=== PATIENT | female | born 1980 | race American Indian/Alaskan Native ===

== ENCOUNTER 2017-07-31 15:04 | Emergency (ER) | payer MEDICAID ==
[2017-07-31 15:50] VITALS: BP 127/81
--- NOTE | 2017-07-31 17:11 | XRay Report ---
FINAL REPORT PROCEDURE: XR CHEST ROUTINE 2V TECHNIQUE: PA and lateral chest radiographs were obtained. CPT 00551 HISTORY: Flu like symptoms. COMPARISON: No prior studies are available for comparison. FINDINGS: Heart: The heart size is top-normal. Mediastinum/Vessels: Normal. Lungs/Pleural space: Normal. Slight eventration of the right diaphragm. Bony thorax: No acute osseous abnormality. Other: IMPRESSION: No radiographic evidence of acute cardiopulmonary disease. Heart size top-normal.
[2017-07-31] MEDS ORDERED: DECADRON IM ONE (17:20)
[2017-07-31] MEDS ORDERED: PROVENTIL IH ONE (17:20)
[2017-07-31] MEDS ORDERED: MOTRIN PO ONE (17:20)
--- NOTE | 2017-07-31 17:24 | Emergency Department Report ---
- General Chief Complaint: Upper Respiratory Infection Stated Complaint: CHEST PAIN Time Seen by Provider: 07/31/17 17:20 Source: patient Mode of arrival: Ambulatory Limitations: No Limitations - History of Present Illness Initial Comments: 37-year-old -[place] female comes in to the emergency room for cough and congestion times a few days. Patient reports that she sat up subjective fever body aches cough chest felt tight nausea vomiting. Patient reports she last vomited last night at work. She reports that just don't feel good. Patient does have a 6-month-old has been seen as well. He has been sick. She has past medical history anxiety. MD Complaint: fever, cough, sore throat, nasal congestion -: days(s) (3) Severity scale (0 -10): 6 Quality: sharp Worsens With: deep breaths, other (coughing) Associated Symptoms: fever, nasal congestion, sore throat, chest pain, nausea, vomiting, diarrhea - Related Data Previous Rx's Medication Instructions Recorded Last Taken Type ALBUTEROL Inhaler [ProAir HFA 2 puff IH QID PRN #1 inhalation 07/31/17 Unknown Rx Inhaler] methylPREDNISolone [Medrol] 4 mg PO QDAY #1 tab.ds.pk 07/31/17 Unknown Rx Allergies Allergy/AdvReac Type Severity Reaction Status Date / Time No Known Allergies Allergy Verified 07/31/17 15:44 ED Review of Systems ROS: Stated complaint: CHEST PAIN Other details as noted in HPI Constitutional: fever ENT: throat pain, congestion Respiratory: cough, shortness of breath, wheezing Cardiovascular: chest pain Gastrointestinal: nausea, vomiting, diarrhea Genitourinary: denies: urgency, dysuria, discharge Musculoskeletal: denies: back pain, joint swelling, arthralgia Skin: denies: rash, lesions Neurological: denies: headache, weakness, paresthesias Psychiatric: denies: anxiety, depression Hematological/Lymphatic: denies: easy bleeding, easy bruising ED Past Medical Hx - Past Medical History Previous Medical History?: No Hx Hypertension: Yes Additional medical history: anxiety - Surgical History Past Surgical History?: No - Social History Smoking Status: Current Every Day Smoker Substance Use Type: None - Medications Home Medications: Home Medications Medication Instructions Recorded Confirmed Last Taken Type ALBUTEROL Inhaler [ProAir HFA 2 puff IH QID PRN #1 inhalation 02/27/18 Unknown Rx Inhaler] methylPREDNISolone [Medrol] 4 mg PO QDAY #1 tab.ds.pk 07/31/17 Unknown Rx ED Physical Exam - General Limitations: No Limitations General appearance: alert, in no apparent distress - Head Head exam: Present: atraumatic, normocephalic - Eye Eye exam: Present: normal appearance - ENT ENT exam: Present: mucous membranes moist - Neck Neck exam: Present: normal inspection ED Course Vital Signs 07/31/17 15:45 Temperature 98.1 F Pulse Rate 85 Respiratory 16 Rate Blood Pressure 127/81 O2 Sat by Pulse 98 Oximetry - Reevaluation(s) Reevaluation #1: 07/31/17 18:09 Reassessment. Patient reports that she feels much better after having nebulizer treatment and steroids. Discussed the patient discharged her with her all Medrol Dosepak. Patient verbalized understanding ED Medical Decision Making - Medical Decision Making Patient's been evaluated by this provider fast track. I ordered chest x-ray steroids and albuterol and ibuprofen. Patient reports she feels much better after having her treatments. Discussed the patient I will discharge her with steroids and albuterol inhaler patient verbalized understanding. Critical care attestation.: If time is entered above; I have spent that time in minutes in the direct care of this critically ill patient, excluding procedure time. ED Disposition Clinical Impression: Viral syndrome Disposition: DC-01 TO HOME OR SELFCARE Is pt being admited?: No Does the pt Need Aspirin: No Condition: Stable Instructions: Viral Syndrome (ED) Additional Instructions: Please take medication as prescribed. Follow-up to primary care provider in 3- 5 days. Prescriptions: ALBUTEROL Inhaler [ProAir HFA Inhaler] 2 puff IH QID PRN #1 inhalation PRN Reason: Shortness Of Breath methylPREDNISolone [Medrol] 4 mg PO QDAY #1 tab.ds.pk Referrals: [facility] [Provider Group] - 3-5 Days Forms: Work/School Release Form(ED)
== END 2017-07-31 18:45 | disposition home or self-care (01) ==
LOC: ED 15:04
DX: B34.9 Viral infection, unspecified (principal); F41.9 Anxiety disorder, unspecified; F17.200 Nicotine dependence, unspecified, uncomplicated; I10 Essential (primary) hypertension
CPT/HCPCS: 71046; 96372; 99283; J1100

== ENCOUNTER 2017-09-30 14:19 | Emergency (ER) | payer MEDICAID ==
[2017-09-30 14:32] VITALS: BP 144/88
[2017-09-30] MEDS ORDERED: LIDOCAINE VISCOUS 2% PO ONE (14:52)
[2017-09-30] MEDS ORDERED: MOTRIN PO ONE (14:52)
--- NOTE | 2017-09-30 15:02 | Emergency Department Report ---
ED ENT HPI - General Chief complaint: Sore Throat Stated complaint: THROAT PAIN/NAUSEA Time Seen by Provider: 09/30/17 14:33 Source: patient Mode of arrival: Ambulatory Limitations: No Limitations - History of Present Illness Initial comments: This is a 37-year-old female nontoxic, well nourished in appearance, no acute signs of distress presents to the ED with c/o of sore throat x2 days. Patient staed that sore throat causes her to become nauseous but currently in the ED denies any nausea. Patient describes sore throat as swallowing razer blades. Patient denies any fever, chills, headache, stiff neck, nausea, vomiting, chest pain, shortness of breath, numbness or tingling. Patient denies any drooling or hoarseness. Patient denies any allergies. PMH includes HTN. MD complaint: sore throat -: days(s) (2) Location: throat Severity: mild Consistency: constant Improves with: none Worsens with: swallowing Associated Symptoms: pain with swallowing, sore throat. denies: fever, cough, gum swelling, toothache, tinnitus, hearing loss, discharge from ear, rhinorrhea - Related Data Previous Rx's Medication Instructions Recorded Last Taken Type ALBUTEROL Inhaler [ProAir HFA 2 puff IH QID PRN #1 inhalation 07/31/17 Unknown Rx Inhaler] methylPREDNISolone [Medrol] 4 mg PO QDAY #1 tab.ds.pk 07/31/17 Unknown Rx Amoxicillin [Amoxicillin TAB] 875 mg PO BID #20 tablet 09/30/17 Unknown Rx Ibuprofen [Motrin] 600 mg PO Q8H PRN #30 tablet 09/30/17 Unknown Rx Nystas/Diphen/Xyl Visc/Mylanta 15 ml MM Q4H PRN 10 Days ml 09/30/17 Unknown Rx [Magic Mouthwash] Ondansetron [Zofran Odt] 4 mg PO Q8HR PRN #15 tab.rapdis 09/30/17 Unknown Rx Allergies Allergy/AdvReac Type Severity Reaction Status Date / Time No Known Allergies Allergy Verified 07/31/17 15:44 ED Dental HPI - General Chief complaint: Sore Throat Stated complaint: THROAT PAIN/NAUSEA Time Seen by Provider: 09/30/17 14:33 Source: patient Mode of arrival: Ambulatory Limitations: No Limitations - Related Data Previous Rx's Medication Instructions Recorded Last Taken Type ALBUTEROL Inhaler [ProAir HFA 2 puff IH QID PRN #1 inhalation 07/31/17 Unknown Rx Inhaler] methylPREDNISolone [Medrol] 4 mg PO QDAY #1 tab.ds.pk 07/31/17 Unknown Rx Amoxicillin [Amoxicillin TAB] 875 mg PO BID #20 tablet 09/30/17 Unknown Rx Ibuprofen [Motrin] 600 mg PO Q8H PRN #30 tablet 09/30/17 Unknown Rx Nystas/Diphen/Xyl Visc/Mylanta 15 ml MM Q4H PRN 10 Days ml 09/30/17 Unknown Rx [Magic Mouthwash] Ondansetron [Zofran Odt] 4 mg PO Q8HR PRN #15 tab.rapdis 09/30/17 Unknown Rx Allergies Allergy/AdvReac Type Severity Reaction Status Date / Time No Known Allergies Allergy Verified 07/31/17 15:44 ED Review of Systems ROS: Stated complaint: THROAT PAIN/NAUSEA Other details as noted in HPI Constitutional: denies: chills, fever Eyes: denies: eye pain, eye discharge, vision change ENT: throat pain. denies: ear pain Respiratory: denies: cough, shortness of breath, wheezing Cardiovascular: denies: chest pain, palpitations Endocrine: no symptoms reported Gastrointestinal: denies: abdominal pain, nausea, diarrhea Genitourinary: denies: urgency, dysuria, discharge Musculoskeletal: denies: back pain, joint swelling, arthralgia Skin: denies: rash, lesions Neurological: denies: headache, weakness, paresthesias Psychiatric: denies: anxiety, depression Hematological/Lymphatic: denies: easy bleeding, easy bruising ED Past Medical Hx - Past Medical History Hx Hypertension: Yes Additional medical history: anxiety,disc issues - Social History Smoking Status: Never Smoker Substance Use Type: None - Medications Home Medications: Home Medications Medication Instructions Recorded Confirmed Last Taken Type ALBUTEROL Inhaler [ProAir HFA 2 puff IH QID PRN #1 inhalation 07/31/17 Unknown Rx Inhaler] methylPREDNISolone [Medrol] 4 mg PO QDAY #1 tab.ds.pk 07/31/17 Unknown Rx Amoxicillin [Amoxicillin TAB] 875 mg PO BID #20 tablet 09/30/17 Unknown Rx Ibuprofen [Motrin] 600 mg PO Q8H PRN #30 tablet 09/30/17 Unknown Rx Nystas/Diphen/Xyl Visc/Mylanta 15 ml MM Q4H PRN 10 Days ml 09/30/17 Unknown Rx [Magic Mouthwash] Ondansetron [Zofran Odt] 4 mg PO Q8HR PRN #15 tab.leroydis 09/30/17 Unknown Rx ED Physical Exam - General Limitations: No Limitations General appearance: alert, in no apparent distress - Head Head exam: Present: atraumatic, normocephalic - Eye Eye exam: Present: normal appearance Pupils: Present: normal accommodation - ENT ENT exam: Present: mucous membranes moist, TM's normal bilaterally, normal external ear exam - Expanded ENT Exam Expanded Ear exam: Present: normal external inspection Mouth exam: Present: normal external inspection, tongue normal. Absent: drooling, trismus, muffled voice, tongue elevation, laceration Teeth exam: Present: normal inspection Throat exam: Positive: tonsillar erythema, tonsillomegaly (2+), other (Uvula midline. NO abscess or swelling noted. ). Negative: tonsillar exudate, R peritonsillar mass, L peritonsillar mass - Neck Neck exam: Present: normal inspection, full ROM, lymphadenopathy (bialteral tonsillar). Absent: tenderness, meningismus - Respiratory Respiratory exam: Present: normal lung sounds bilaterally. Absent: respiratory distress, wheezes, rales, rhonchi, stridor, chest wall tenderness, accessory muscle use, decreased breath sounds, prolonged expiratory - Cardiovascular Cardiovascular Exam: Present: regular rate, normal rhythm, normal heart sounds. Absent: irregular rhythm, systolic murmur, diastolic murmur, rubs, gallop - GI/Abdominal GI/Abdominal exam: Present: soft, normal bowel sounds. Absent: distended, tenderness, guarding, rebound, rigid, diminished bowel sounds - Expanded GI/Abdominal Exam Expanded GI/Abdominal exam: Absent: psoas sign, obturator sign, heel tap sign, Trevino's sign, Rovsing's sign, tenderness at Mcburney's Point, ascites - Rectal Rectal exam: Present: deferred - Extremities Exam Extremities exam: Present: normal inspection, full ROM, normal capillary refill - Back Exam Back exam: Present: normal inspection, full ROM - Neurological Exam Neurological exam: Present: alert, oriented X3, normal gait - Psychiatric Psychiatric exam: Present: normal affect, normal mood - Skin Skin exam: Present: warm, dry, intact, normal color. Absent: rash ED Course Vital Signs 09/30/17 14:29 Temperature 98.4 F Pulse Rate 110 H Respiratory 18 Rate Blood Pressure 144/88 O2 Sat by Pulse 98 Oximetry - Reevaluation(s) Reevaluation #1: 09/30/17 15:00 Patient is speaking in full sentences with no signs of distress noted. Critical care attestation.: If time is entered above; I have spent that time in minutes in the direct care of this critically ill patient, excluding procedure time. ED Disposition Clinical Impression: Tonsillitis, Nausea Disposition: DC-01 TO HOME OR SELFCARE Is pt being admited?: No Does the pt Need Aspirin: No Condition: Stable Instructions: Tonsillitis (ED), Ondansetron (By mouth) Additional Instructions: Follow-up with a primary care doctor in 3-5 days or if symptoms worsen and continue return to emergency room as soon as possible. Prescriptions: Amoxicillin [Amoxicillin TAB] 875 mg PO BID #20 tablet Ibuprofen [Motrin] 600 mg PO Q8H PRN #30 tablet PRN Reason: Pain Nystas/Diphen/Xyl Visc/Mylanta [Magic Mouthwash] 15 ml MM Q4H PRN 10 Days ml PRN Reason: Sore Throat Ondansetron [Zofran Odt] 4 mg PO Q8HR PRN #15 tab.rapdis PRN Reason: Nausea Referrals: [facility]IMARY [facility] [Primary Care Provider] - 3-5 Days SALMA MURRAY MD [Staff Physician] - 3-5 Days [facility] [Outside] - 3-5 Days [facility] [Outside] - 3-5 Days Forms: Work/School Release Form(ED)
== END 2017-09-30 15:09 | disposition home or self-care (01) ==
LOC: ED 14:19
DX: J03.90 Acute tonsillitis, unspecified (principal); R11.0 Nausea
CPT/HCPCS: 99282

== ENCOUNTER 2018-01-12 05:45 | Emergency (ER) | payer MEDICAID ==
[2018-01-12 06:03] VITALS: BP 149/102
[2018-01-12 07:32] LABS: HCG Qualitative,Urine Negative (Negative)
--- NOTE | 2018-01-12 08:26 | XRay Report ---
FINAL REPORT EXAM: XR CHEST ROUTINE 2V HISTORY: coughing/HOLDEN TECHNIQUE: PA and lateral chest radiographs PRIORS: 07/31/2017 FINDINGS: No mediastinal shift. Cardiac silhouette is not enlarged. No pneumothorax, effusion, or focal pulmonary opacity. No acute skeletal finding. IMPRESSION: No focal pulmonary opacity.
== END 2018-01-12 08:45 | disposition left against medical advice (07) ==
LOC: ED 05:45
DX: R07.89 Other chest pain (principal); Z53.21 Procedure and treatment not carried out due to patient leaving prior to being seen by health care provider
CPT/HCPCS: 71046; 81025; 93005; 93010

== ENCOUNTER 2018-01-12 10:48 | Emergency (ER) | payer MEDICAID ==
[2018-01-12 10:54] VITALS: BP 152/105
[2018-01-12] MEDS ORDERED: TORADOL IM ONE (11:39)
[2018-01-12] MEDS ORDERED: ZOFRAN IM ONE (11:40)
--- NOTE | 2018-01-12 11:43 | Emergency Department Report ---
- General Chief Complaint: Pain General Stated Complaint: CHEST PAIN/VOMIT/CHILLS Time Seen by Provider: 01/12/18 11:34 Source: patient Mode of arrival: Ambulatory Limitations: No Limitations - History of Present Illness MD Complaint: fever, cough, sore throat, rhinorrhea, nasal congestion, sinus pain Severity: moderate Consistency: constant Context: sick contacts - Related Data Previous Rx's Medication Instructions Recorded Last Taken Type ALBUTEROL Inhaler [ProAir HFA 2 puff IH QID PRN #1 inhalation 07/31/17 Unknown Rx Inhaler] methylPREDNISolone [Medrol] 4 mg PO QDAY #1 tab.ds.pk 07/31/17 Unknown Rx Amoxicillin [Amoxicillin TAB] 875 mg PO BID #20 tablet 09/30/17 Unknown Rx Ibuprofen [Motrin] 600 mg PO Q8H PRN #30 tablet 09/30/17 Unknown Rx Nystas/Diphen/Xyl Visc/Mylanta 15 ml MM Q4H PRN 10 Days ml 09/30/17 Unknown Rx [Magic Mouthwash] Ondansetron [Zofran Odt] 4 mg PO Q8HR PRN #15 tab.rapdis 09/30/17 Unknown Rx Allergies Allergy/AdvReac Type Severity Reaction Status Date / Time No Known Allergies Allergy Verified 01/12/18 10:50 ED Review of Systems ROS: Stated complaint: CHEST PAIN/VOMIT/CHILLS Other details as noted in HPI Constitutional: chills, fever Respiratory: cough. denies: shortness of breath, SOB with exertion, SOB at rest , wheezing Cardiovascular: denies: chest pain, palpitations, dyspnea on exertion, orthopnea Gastrointestinal: denies: abdominal pain, nausea, vomiting ED Past Medical Hx - Past Medical History Hx Hypertension: Yes Additional medical history: anxiety,disc issues - Surgical History Additional Surgical History: ectopic - Social History Smoking Status: Never Smoker Substance Use Type: None - Medications Home Medications: Home Medications Medication Instructions Recorded Confirmed Last Taken Type ALBUTEROL Inhaler [ProAir HFA 2 puff IH QID PRN #1 inhalation 07/31/17 Unknown Rx Inhaler] methylPREDNISolone [Medrol] 4 mg PO QDAY #1 tab.ds.pk 07/31/17 Unknown Rx Amoxicillin [Amoxicillin TAB] 875 mg PO BID #20 tablet 09/30/17 Unknown Rx Ibuprofen [Motrin] 600 mg PO Q8H PRN #30 tablet 09/30/17 Unknown Rx Nystas/Diphen/Xyl Visc/Mylanta 15 ml MM Q4H PRN 10 Days ml 09/30/17 Unknown Rx [Magic Mouthwash] Ondansetron [Zofran Odt] 4 mg PO Q8HR PRN #15 tab.rapdis 09/30/17 Unknown Rx ED Physical Exam - General Limitations: No Limitations General appearance: alert, in no apparent distress - Head Head exam: Present: atraumatic, normocephalic, normal inspection - Eye Eye exam: Present: normal appearance - ENT ENT exam: Present: normal exam, normal orophraynx - Neck Neck exam: Present: normal inspection, full ROM. Absent: tenderness, meningismus, lymphadenopathy, thyromegaly - Respiratory Respiratory exam: Present: normal lung sounds bilaterally - Cardiovascular Cardiovascular Exam: Present: regular rate, normal rhythm, normal heart sounds - GI/Abdominal GI/Abdominal exam: Present: soft, normal bowel sounds. Absent: distended, tenderness, guarding, rebound, rigid, organomegaly, mass, bruit, pulsatile mass , hernia - Extremities Exam Extremities exam: Present: normal inspection, full ROM, normal capillary refill - Back Exam Back exam: Present: normal inspection, full ROM. Absent: CVA tenderness (L) - Neurological Exam Neurological exam: Present: alert, oriented X3, CN II-XII intact, normal gait, reflexes normal - Skin Skin exam: Present: warm, intact, normal color ED Course Vital Signs 01/12/18 10:50 Temperature 98.6 F Pulse Rate 84 Respiratory 18 Rate Blood Pressure 152/105 O2 Sat by Pulse 99 Oximetry Critical care attestation.: If time is entered above; I have spent that time in minutes in the direct care of this critically ill patient, excluding procedure time. ED Disposition Clinical Impression: Viral syndrome Disposition: DC-01 TO HOME OR SELFCARE Is pt being admited?: No Condition: Stable Instructions: Viral Syndrome (ED) Referrals: PRIMARY [facility]ARE, [Primary Care Provider] - 3-5 Days
[2018-01-12 15:04] LABS: HCG Qualitative,Urine Negative (Negative)
== END 2018-01-12 15:40 | disposition home or self-care (01) ==
LOC: ED 10:48
DX: B34.9 Viral infection, unspecified (principal); I10 Essential (primary) hypertension
CPT/HCPCS: 81025; 96372; 99283; J1885; J2405